=== PATIENT | female | born 1955 | race African-American/Black ===

== ENCOUNTER 2017-12-27 05:49 | Day surgery (SDC) | payer MEDICARE, MEDICAID ==
[2017-12-26 11:55] LABS: BASOPHILS 0.6 % (0-2); EOSINOPHILS 4.8 % (0-7); HEMATOCRIT 31.5 % (36.0-48.0); HEMOGLOBIN 9.7 g/dL (12-16); IMMATURE GRANULOCYTES 0.3 % (0-5); LYMPHOCYTES 43.4 % (15-50); MCH 25.9 pg (26.0-34.0); MCHC 30.8 g/dL (31.0-37.0); MEAN PLATELET VOLUME 9.7 fL (7.4-10.4); MONOCYTES 10.7 % (2-11); NEUTROPHILS 40.2 % (40-80); PLATELET COUNT 186 10x3/uL (130-400); RBC 3.75 10x6/uL (4.00-5.40); RDW 17.2 % (11.5-14.5); WBC 3.6 10x3/uL (4.8-10.8)
[2017-12-26 12:05] LABS: ANION GAP 16.9 mmol/L (8-16); CARBON DIOXIDE 18.6 mmol/L (21.0-32.0); CREATININE - SERUM 3.8 mg/dL (0.6-1.3); POTASSIUM - SERUM 4.5 mmol/L (3.5-5.1)
[2017-12-26 12:06] LABS: INR 1.26 (0.85-1.17); PROTIME 15.3 SECONDS (11.6-15.0)
[~2017-12-27] VITALS: Ht 162.6 cm; Wt 124.7 kg
--- NOTE | ~2017-12-27 | OP ---
PATIENT NAME: SABRINA MCGOVERN MEDICAL RECORD: [id number] :59 LOCATION:DIVON ADMISSION DATE: SURGEON: DENVER DELONG MD DATE OF OPERATION: 12/27/2017 REFERRED BY: Quinn Gibson MD PREOPERATIVE DIAGNOSIS: Chronic kidney disease V. POSTOPERATIVE DIAGNOSIS: Chronic kidney disease V. OPERATION PERFORMED: Creation of a left distal brachial artery/proximal radial artery to cephalic vein AV fistula. SURGEON: Denver Delong MD ANESTHESIA: Regional nerve block plus IV sedation and monitoring per DISPATCHER CHIEF OIL. PREOPERATIVE NOTE: Ms. Mcgovern is a 62-year-old -Macanese female with chronic kidney disease, referred by Dr. Gibson for placement of dialysis access. It is anticipated that she will require dialysis access, probably sometime this year. She is a suitable candidate for a left brachiocephalic fistula or possibly PRA based fistula. DESCRIPTION OF PROCEDURE: With the patient under nerve block and IV sedation in supine position, the left arm was prepped and draped in a sterile manner. I examined her arm with ultrasound after applying nitroglycerin and using a Kirby drain as a proximal venous tourniquet. The veins in her forearm and wrist were smaller, but the cephalic and basilic veins in the upper forearm and upper arm were excellent and the brachial artery was of good caliber and I elected to go ahead with a brachiocephalic AV fistula. I made a transverse antecubital incision and exposed the brachial artery at its bifurcation and controlled the vessels with loops around the proximal radial and proximal ulnar arteries and the distal brachial artery. The median cubital vein and its junction with the basilic vein was exposed and this was ligated and divided and the median cubital/cephalic vein prepared for anastomosis via a deep or center line cutter operator branch. My intention was to if possible create a bidirectional outflow. Later during the operation, however, there was simply too much tension on the vein, so that it was necessary to ligate and divide the distal vein and thus the end result was an unidirectional output or outflow fistula. The vein was prepared for anastomosis and flushed with heparinized saline and occluded, it was treated with topical papaverine. The artery was opened just on top of its bifurcation and the artery flushed proximally and distally with heparinized saline. The anastomosis was then performed in the vein to side of artery with running 7-0 Prolene. When completed, excellent flow was immediately established within the new fistula and there was preservation of pulsatile Doppler flow in the distal arteries and in the radial artery at the wrist and palmar arch. The wound was irrigated with Ancef and gentamicin solution. It was closed with interrupted inverted 3-0 Vicryl and running intracuticular 4-0 Monocryl and Dermabond glue. It was dressed with Maxorb Ag, Tegaderm, and Cavilon skin prep and she was awakened and taken back to the recovery room in stable condition. She will wear a sling on her arm overnight and/or may take it off as soon as motor function and sensory function returned in her arm. OPERATIVE REPORT [id number] SABRINA MCGOVERN She will be discharged to home with an appointment to return to see me in 10 days. She is given a prescription for 10 tablets of [place] 5/325 one p.o. q.4 hours p.r.n. pain. I understand from her that she has some perhaps a small number of these tablets at home which she has taken at least in the past to his knowledge for menstrual discomfort. Blood loss during the operation was about 10-15 cc. None was replaced intraoperatively. All sponges, instruments, and needles were accounted for. No drain was used. TRANSINT:[id number] Voice Confirmation ID: [id number] DOCUMENT ID: [id number] DENVER DELONG MD at 1750 CC: QUINN GIBSON [id number] DICTATION DATE: 12/27/17 1053 SUPERINTENDENT OPERATIONS DIVISION: 12/27/17 1146 [facility] 12/27/17 [id number] [place] [address]
[~2017-12-27 05:49] MED LIST: BUMEX 1 MG TAB1 MG PO; CARDURA8 MG PO; CATAPRES0.3 MG PO; CELEXA40 MG PO; COREG25 MG PO; FISH OIL 1,0001 CA1 PO; HYDRALAZINE HC100 MG PO; ISOSORBIDE MON120 M1 PO; LANTUS INSULIN10 ML SC; NORVASC10 MG PO; PLAVIX75 MG PO
[2017-12-27] MEDS ORDERED: HYDROCODONE-APA1 TAB PO (06:22)
[2017-12-27 06:45] VITALS: BP 143/68; Ht 162.6 cm; Wt 124.7 kg
[2017-12-27] MEDS ORDERED: HYDROCODON-ACE1 EAC7 PO (10:42)
== END 2017-12-27 13:11 | disposition home or self-care (01) ==
LOC: D.OPS 05:49 → D.PAN 08:00 → D.OPS 13:11
PROVIDERS: Surgery
DX: E11.22 Type 2 diabetes mellitus with diabetic chronic kidney disease (principal); I13.2 Hypertensive heart and chronic kidney disease with heart failure and with stage 5 chronic kidney disease, or end stage renal disease; N18.6 End stage renal disease; Z95.1 Presence of aortocoronary bypass graft; Z95.5 Presence of coronary angioplasty implant and graft; Z01.812 Encounter for preprocedural laboratory examination

== ENCOUNTER 2018-03-19 08:00 | Outpatient (CLI) | payer MEDICARE, MEDICAID ==
[2017-12-27 06:45] VITALS: BMI 47.3
[~2018-03-19 08:00] MED LIST changes: +HYDROCODON-ACE1 EAC7 PO; +HYDROCODONE-APA1 TAB PO
== END 2018-03-19 09:00 | disposition home or self-care (01) ==
LOC: D.MAMMO 08:00
DX: Z12.31 Encounter for screening mammogram for malignant neoplasm of breast (principal)

== ENCOUNTER 2018-03-26 10:08 | Observation (INO) | payer MEDICARE, MEDICAID ==
[~2018-03-26] VITALS: Ht 162.6 cm; Wt 78.2 kg
[2018-03-26] VITALS (10 sets, daily range): BP systolic 120–172; BP diastolic 64–99; Ht 162.6 cm; Wt 78.2 kg
--- NOTE | ~2018-03-26 | HEMODYNAMI ---
PATIENT:SABRINA MCGOVERN MEDICAL RECORD: [id number] : 59 LOCATION:D. ADMISSION DATE: 03/26/18 Generatedon:03/26/201814:31 Patient name: SABRINA MCGOVERN Patient #: [id number] SSN: : 1955 Date of study: 03/26/2018 Page: Of Hemodynamic Procedure Report Patient Data Patient Demographics Procedure consent was obtained First Name: SABRINA Gender: Female Last Name: SHANIQUA : 1955 [facility] Initial: K Age: 62 year(s) Patient #: [id number] Race: Black Additional ID: [id number] Contact details [address]: [address] [place] [address] rd State: [place] City: [place] Zip code: [address] Admission Admission Data Admission Date: 03/26/2018 Admission Time: 10:08 Procedure Procedure Types Cath Procedure Peripheral Cath Diagnostic Procedure Miscellaneous Procedure Description Procedure Date Procedure Date: 03/26/2018 Procedure Start Time: 13:25 Procedure Staff Name Function Ross Flor MD Performing Physician Ulisses Hanson RT Monitor Leslye Pardo RT Scrub Cheryl Leslie RN Nurse Procedure Data Cath Procedure Fluoroscopy Diagnostic fluoroscopy Total fluoroscopy Time: time: 25.2 min 25.2 min Diagnostic fluoroscopy Total fluoroscopy dose: 423 dose: 423 mGy mGy Contrast Material Contrast Material Type Amount (ml) Isovue 300 15 Entry Location Entry Primary Successful Side Size (Fr) Upsize Upsize Entry Closure Successful Closure Location 1 (Fr) 2 (Fr) Remarks Device Remarks Femoral Right 6 Fr Manual vein Mid-Length Compressi on Diagnostic catheters Device Type Used For End Catheter Placement Merit Impress COBRA 2 5Fr Pressure 65CM catheter ([id number]) Measurement Merit Impress KA2 5Fr 65CM catheter ([id number]) Cook CHG-B 5FR 65CM catheter ([id number]) DIAGNOSTIC MPA-2 5Fr catheter ([id number]) Procedure Medications Medication Administration Route Dosage Lidocaine 1% added to field 20 Heparin Flush Bag added to field 2 bags (1000units/500ml NS) Versed I.V. 0.5 mg Fentanyl I.V. 25 mcg Versed I.V. 0.5 mg Fentanyl I.V. 25 mcg Versed I.V. 0.5 mg Fentanyl I.V. 25 mcg Hemodynamics Rest Heart Rate: 63 (bpm) Snapshots Pre Cath Intra NCS Post Cath Vital Signs Time Heart Resp SPO2 etCO2 NIBP (mmHg) Rhythm Pain Sedation Rate (ipm) (%) (mmHg) Status Level (bpm) 13:11:13 62 25 99 23.9 143/71(85) NSR 0 (11) 10(A) , No pain 13:15:27 62 26 100 24.7 165/85(144) NSR 0 (11) 10(A) , No pain 13:19:49 65 18 100 31.5 186/93(168) NSR 0 (11) 10(A) , No pain 13:24:17 60 17 100 33.7 182/86(161) NSR 0 (11) 10(A) , No pain 13:28:48 60 11 100 35.2 186/85(158) NSR 0 (11) 10(A) , No pain 13:33:12 60 14 100 0 175/85(149) NSR 0 (11) 10(A) , No pain 13:37:30 69 16 100 38.2 154/87(127) NSR 0 (11) 10(A) , No pain 13:41:52 60 8 100 40.4 140/75(118) NSR 0 (11) 10(A) , No pain 13:46:08 60 8 100 42 134/79(125) NSR 0 (11) 10(A) , No pain 13:50:22 60 11 100 38.2 140/76(120) NSR 0 (11) 10(A) , No pain 13:54:38 60 10 100 45.7 141/78(120) NSR 0 (11) 10(A) , No pain 13:58:56 60 13 100 45.7 146/73(126) NSR 0 (11) 10(A) , No pain 14:03:14 60 10 100 45 144/78(122) NSR 0 (11) 10(A) , No pain 14:07:31 59 10 100 45 144/79(120) NSR 0 (11) 10(A) , No pain 14:11:46 59 9 99 45.7 146/71(124) NSR 0 (11) 10(A) , No pain 14:16:05 60 9 98 45.7 138/76(103) NSR 0 (11) 10(A) , No pain 14:20:20 66 9 97 43.4 140/76(119) NSR 0 (11) 10(A) , No pain 14:24:36 60 10 96 46.5 137/76(114) NSR 0 (11) 10(A) , No pain 14:28:53 60 9 95 45.7 136/77(119) NSR 0 (11) 10(A) , No pain Medications Time Medication Route Dose Verified Delivered Reason Notes Effec tiveness by by 13:13:37 Lidocaine 1% added 20ml Ross Hawkins used for to vial Basia Flor procedure field MD DELGADILLO 13:13:51 Heparin Flush added 2 Ross Hawkins used for Bag to bags Basiajuan manuel Flor procedure (1000units/500ml field MD DELGADILLO NS) 13:25:33 Versed I.V. 0.5 Ross Cheryl for mg Basia Anuj RN sedation 13:25:43 Fentanyl I.V. 25 Ross Cheryl for mcg Basia Anuj RN sedation 13:32:45 Versed I.V. 0.5 Ross Cheryl for mg Basia Anuj RN sedation 13:32:53 Fentanyl I.V. 25 Ross Luna for mcg Basia Anuj RN sedation 13:56:31 Versed I.V. 0.5 Ross Cheryl for mg Basia Anuj RN sedation 13:56:39 Fentanyl I.V. 25 Ross Cheryl for mcg Basia Anuj RN sedation Procedure Log Time Note 12:46:49 Ulisses Hanson RT (R) (CV) sent for patient. Start room use. 12:46:56 Time tracking: Regular hours (M-F 7:00 - 5:00) 12:47:02 Plan of Care:Hemodynamics will remain stable., Cardiac rhythm will remain stable., Comfort level will be maintained., Respiratory function will remain adequate., Patient/ family verbilizes understanding of procedure., Procedure tolerated without complication., Recovers from procedure without complications.. 12:47:11 Patient received from ED to IR Alert and oriented. Tansferred to table in Supine position. 12:47:13 Correct patient and procedure confirmed by team. 12:47:14 Correct patient and procedure confirmed by team. 12:47:17 Signed procedure consent form obtained from patient. 12:47:18 ECG and BP/O2 sat monitors applied to patient. 12:47:19 Full Disclosure recording started 12:47:20 - 12:47:27 H&P Date Dictated: 03/26/2018 Within 30 days and on chart.. 12:47:29 Pre-procedure instructions explained to patient. 12:47:31 Family in waiting room. 12:47:33 Patient NPO since Midnight. 12:47:37 Is the patient allergic to Iodine/contrast media? No. 12:47:39 Is patient on blood thinner?No 12:47:40 Patient diabetic? Yes. 12:47:41 If diabetic: On Metformin? No 12:47:43 - 12:47:44 ----Pre-sedation anethsthesia assessment.---- 12:47:46 Previous problem with sedation/anesthesia? No ? 12:47:47 Snore? No 12:47:48 Sleep apnea? No 12:47:51 Opens mouth fully? Yes 12:47:55 Sticks out tongue? Yes 12:48:01 Deviated septum? No 12:48:05 Airway obstruction? No ? 12:48:07 Dentures? No ? 12:48:16 Use device set IR Diagnostic 12:48:17 Tegaderm 4 x 4 (1626W) opened to sterile field. 12:48:18 Sterile Angiographic Pack opened to sterile field. 12:48:18 Bag Decanter (2002S) opened to sterile field. 12:59:22 IV patent on arrival in right hand with 0.9% NaCl at [facility]. 12:59:35 Right groin area was prepped with chlora-prep and draped in sterile fashion 12:59:37 Alarms reviewed by R. N. 12:59:37 Sharps counted by scrub and verified by R.N. 13:10:05 Vital chart was started 13:10:16 Baseline sample Acquired. 13:13:37 Lidocaine 1% 20ml vial added to field was administered by Ross zelaya MD; used for procedure; 13:13:51 Heparin Flush Bag (1000units/500ml NS) 2 bags added to field was administered by Ross Flor MD; used for procedure; 13:22:28 Physician arrived 13::29 --------ALL STOP TIME OUT------ 13:22:30 Final Timeout: patient, procedure, and site verified with staff and physician. All members of the team are in agreement. 13:22:34 Right groin site verified by team. 13:22:47 Sedation plan: IV Moderate Sedation Medication:Versed, Fentanyl 13:25:11 Procedure started. 13:25:16 Local anesthetic to right femoral vein with Lidocaine 1% by Ross Flor MD.INITIAL ACCESS ONLY 13:25:27 Micropuncture VSI 4FR kit opened to sterile field. 13:25:29 SHEATH 6FR Destination (RSR01) opened to sterile field. 13:25:31 BENTSON 145cm wire (L46039) opened to sterile field. 13:25:33 Versed 0.5 mg I.V. was administered by Cheryl Leslie RN; for sedation; 13:25:33 Access obtained with 4Fr micropunture. 13:25:43 Fentanyl 25 mcg I.V. was administered by Cheryl Leslie RN; for sedation ; 13:25:46 A 6 Fr Mid-Length sheath was inserted into the Right Femoral vein 13:29:43 Baseline sample Acquired. 13:32:45 Versed 0.5 mg I.V. was administered by Cheryl Leslie RN; for sedation; 13:32:53 Fentanyl 25 mcg I.V. was administered by Cheryl Leslie RN; for sedation ; 13:34:36 SNARE, GOOSENECK SNARE 10MM opened to sterile field. 13:34:51 A Merit Impress COBRA 2 5Fr 65CM catheter ([id number]) was advanced over the wire and used for Pressure Measurement. 13:40:47 A Merit Impress KA2 5Fr 65CM catheter (68492AW1) was advanced over the wire and used for . 13:42:18 GLIDE WIRE ANGLE 180cm (UU1745) opened to sterile field. 13:42:48 TORQUE DEVICE PLASTIC .038 ( TD01) opened to sterile field. 13:46:19 Cook JUSTO 1 6FR. Guide sheath opened to sterile field. 13:51:10 COPILOT Valve Control (7514376) opened to sterile field. 13:55:34 A AXADO CHG-B 5FR 65CM catheter (I45985) was advanced over the wire and used for . 13:56:31 Versed 0.5 mg I.V. was administered by Cheryl Leslie RN; for sedation; 13:56:39 Fentanyl 25 mcg I.V. was administered by Cheryl Leslie RN; for sedation ; 14:00:49 A DIAGNOSTIC MPA-2 5Fr catheter (486098W) was advanced over the wire an d used for . 14:22:49 Procedure ended.(Physican Out) 14:23:37 Fluoroscopy time 25.20 minutes. 14:24:02 Fluoroscopy dose: 423 mGy 14:24:02 Flurop Dose total: 423 14:24:52 Contrast amount:Isovue 300 15ml. 14:24:54 Sharps counted by scrub and verified by R.N. 14:24:56 Insertion/operative site no bleeding no hematoma. 14:25:01 Post-op/insertion site Right Femoral vein dressed using a 4 x 4 and Tegaderm. 14:25:08 Sheath removed intact; hemostasis achieved with Manual Compression to the Right Femoral vein. 14:25:13 Post procedure instruction explained to patient.Patient verbalizes understanding. 14:25:14 Procedure and supply charges have been captured, reviewed, submitted an d are correct. 14:26:08 Post right femoral vein:stable 14:30:57 Report given to ED. 14:31:02 Patient transfered to ED with Stretcher. 14:31:31 Vital chart was stopped Device Usage Item Name Manufacture Quantity Catalog Hospital Part Current Minima l Lot# / Number Charge Number Stock Stock Serial# Code Tegaderm 4 x 3M 1 1626W 314196 [id number] 247722 5 4 (1626W) Sterile Cardinal 1 [id number] 899852 188825 5 Angiographic Health Pack Bag Decanter Microtek 1 2001S 100550 79199 186258 5 (2001S) Medical Inc. Micropuncture VSI VASCULAR 1 7266V 267148 890655 5 VSI 4FR kit SOLUTIONS SHEATH 6FR Terumo 1 RSR01 801585 22034 257032 5 Destination (RSR01) BENTSON 145cm Cook Medical 1 U71513 278749 420568 5 7956917 wire (K43241) SNARE, Medtronic 1 EQ6787 544829 82425 606595 5 GOOSENECK SNARE 10MM Merit Impress Merit 1 [id number] 737761 610231 238234 5 COBRA 2 5Fr Medical 65CM catheter ([id number]) Merit Impress Merit 1 [id number] 889114 153098 5 KA2 5Fr 65CM Medical catheter (26325BO3) GLIDE WIRE Terumo 1 SM3732 602575 808112 258300 5 ANGLE 180cm (QX4010) TORQUE DEVICE [place] 1 TD01 820000 323457 111807 5 PLASTIC .038 Scientific ( TD01) Cook JUSTO 1 Cook Medical 1 Z82858 206849 373067 5 1579917 6FR. Guide sheath COPILOT Valve Rdz 1 9794193 437837 407388 281409 5 Control Vascular (8031411) Cook CHG-B Cook Medical 1 Q43982 279110 148300 548651 5 5FR 65CM catheter (Q39777) DIAGNOSTIC Cardinal 1 [id number] 728045 486433 078763 5 MPA-2 5Fr Health catheter ([id number]) Signature Audit [place] Stage Time Signature Unsigned Intra-Procedure 03/26/2018 Ulisses 2:31:27 PM Shuffield RT (R) (CV) Signatures Monitor : Ulisses Signature : Shuffield RT Date : Time : [id number] [place] [address]
[2018-03-26 11:17] LABS: HEMOGLOBIN 11.5 g/dL (12-16); MCH 26.4 pg (26.0-34.0); MCHC 31.9 g/dL (31.0-37.0); MCV 82.8 fL (80.0-100.0); PLATELET COUNT 154 10x3/uL (130-400); RBC 4.35 10x6/uL (4.00-5.40); RDW 15.7 % (11.5-14.5); WBC 5.5 10x3/uL (4.8-10.8)
[2018-03-26 11:19] LABS: INR 1.09 (0.85-1.17); PROTIME 13.7 SECONDS (11.6-15.0)
[2018-03-26 11:46] LABS: ALBUMIN 2.5 g/dL (3.4-5.0); ANION GAP 11.4 mmol/L (8-16); BILIRUBIN - TOTAL 0.38 mg/dL (0.2-1.3); CALCIUM 9.1 mg/dL (8.5-10.1); CARBON DIOXIDE 29.1 mmol/L (21.0-32.0); CREATININE - SERUM 3.9 mg/dL (0.6-1.3); POTASSIUM - SERUM 3.5 mmol/L (3.5-5.1); PROTEIN - SERUM 7.6 g/dL (6.4-8.2)
[2018-03-26 12:09] LABS: EOSINOPHILS 9 % (0-7); LYMPHOCYTES 53 % (15-50); MONOCYTES 4 % (2-11); NEUTROPHILS 33 % (40-80); PLATELET ESTIMATE NORMAL; PLATELET MORPHOLOGY GIANT PLTS PRESENT; ROULEAUX 1+
[2018-03-26] MEDS ORDERED: FOLIC ACID1 MG PO (18:18)
[2018-03-26] MEDS ORDERED: PROTONIX40 MG PO (18:19)
[2018-03-27 00:31] VITALS: BP 182/73
[2018-03-27 04:37] VITALS: BP 159/61
[2018-03-27 07:52] VITALS: BP 155/63
== END 2018-03-27 10:25 | disposition home or self-care (01) ==
LOC: D.ER 10:08 → D.M2 15:55 → OBSVTIME 15:55 → D.M2 03-27 10:25
PROVIDERS: Surgery
DX: T85.9XXA Unspecified complication of internal prosthetic device, implant and graft, initial encounter (principal); Y83.8 Other surgical procedures as the cause of abnormal reaction of the patient, or of later complication, without mention of misadventure at the time of the procedure; E11.22 Type 2 diabetes mellitus with diabetic chronic kidney disease; I13.2 Hypertensive heart and chronic kidney disease with heart failure and with stage 5 chronic kidney disease, or end stage renal disease; I50.9 Heart failure, unspecified; N18.6 End stage renal disease; Z99.2 Dependence on renal dialysis; F41.8 Other specified anxiety disorders; Z86.718 Personal history of other venous thrombosis and embolism

== ENCOUNTER → 2018-03-31 10:01 | Outpatient (CLI) | payer MEDICARE, MEDICAID ==
[2018-03-26 18:29] VITALS: BMI 29.6
[~2018-03-31 10:01] MED LIST changes: +FOLIC ACID1 MG PO; +PROTONIX40 MG PO
== END | disposition home or self-care (01) ==
LOC: D.RAD 10:01
DX: M79.5 Residual foreign body in soft tissue (principal)

== ENCOUNTER 2018-05-20 05:42 | Day surgery (SDC) | payer MEDICARE, MEDICAID ==
[~2018-05-20] VITALS: Ht 162.6 cm; Wt 83.9 kg
--- NOTE | ~2018-05-20 | OP ---
PATIENT NAME: SABRINA MCGOVERN MEDICAL RECORD: [id number] :59 LOCATION:DIVON ADMISSION DATE: SURGEON: DENVER DELONG MD DATE OF OPERATION: 05/20/2018 REFERRING PHYSICIAN: Quinn Gibson MD PREOPERATIVE DIAGNOSES: End-stage renal disease and nonmaturing left arm brachiocephalic arteriovenous fistula. POSTOPERATIVE DIAGNOSES: End-stage renal disease and nonmaturing left arm brachiocephalic arteriovenous fistula. OPERATION PERFORMED: Fistulogram and open ligation of diverting tributaries. SURGEON: Denver Delong MD ANESTHESIA: General with LMA per PHARMACY INFORMATICS SPECIALIST. PREOPERATIVE NOTE: This 62-year-old -British female has a left brachiocephalic AV fistula, which is not yet quite mature. She is here today to have a revision with ligation of tributaries and a fistulogram and indicated procedures. She is presently dialyzing with a right IJ TDC. Under general anesthesia in supine position, the patient prepped and draped in sterile manner. The fistula was accessed in the antecubital space near the arterial anastomosis with ultrasound guidance and micropuncture technique. Contrast injections revealed 2 very large diverting tributary veins and otherwise a great fistula of good caliber a centimeter or nearly so in most sites and half a centimeter or less generally in depth. There was a question in my mind that she might have JA stenosis. Retrograde studies though demonstrated there was no significant stenosis and the arterial anastomosis was wide open as seen on ultrasound and angiography. Contrast was followed all the way to the right atrium and there was no obstruction except possibly around the pacemaker leads, which enter the left subclavian vein. This was just not well visualized. Using ultrasound and x-ray, I isolated 2 sites where I made 2 incisions parallel to the posterior aspect of the vein. I isolated the 2 large tributary veins, which I thought were diverting a significant flow and pressure from the fistula. These were each multiply ligated and divided and a repeat fistulogram demonstrated much improvement. The wounds were closed with running intracuticular Monocryl and Dermabond glue. They were dressed with Maxorb Ag, Tegaderm, and Cavilon skin prep and the patient awakened and taken back to the recovery room. TRANSINT:[id number] Voice Confirmation ID: [id number] DOCUMENT ID: [id number] OPERATIVE REPORT [id number] SABRINA MCGOVERN JAMES MD at 1753 CC: QUINN GIBSON [id number] DICTATION DATE: 05/20/18 1507 POT ROOM SUPERVISOR: 05/20/18 1610 [facility] 05/20/18 [address] [place] [address]
[2018-05-20 06:00] LABS: BASOPHILS 0.4 % (0-2); EOSINOPHILS 9.8 % (0-7); HEMATOCRIT 37.1 % (36.0-48.0); HEMOGLOBIN 12.2 g/dL (12-16); IMMATURE GRANULOCYTES 0.3 % (0-5); LYMPHOCYTES 47.6 % (15-50); MCH 28.4 pg (26.0-34.0); MCHC 32.9 g/dL (31.0-37.0); MCV 86.5 fL (80.0-100.0); MEAN PLATELET VOLUME 9.1 fL (7.4-10.4); MONOCYTES 8.2 % (2-11); NEUTROPHILS 33.7 % (40-80); PLATELET COUNT 170 10x3/uL (130-400); RBC 4.29 10x6/uL (4.00-5.40); RDW 16.7 % (11.5-14.5); WBC 7.5 10x3/uL (4.8-10.8)
[2018-05-20 06:07] LABS: ANION GAP 13.1 mmol/L (8-16); CALCIUM 9.3 mg/dL (8.5-10.1); CREATININE - SERUM 5.2 mg/dL (0.6-1.3); POTASSIUM - SERUM 4.1 mmol/L (3.5-5.1)
[2018-05-20 06:09] LABS: APTT 33.4 SECONDS (22.8-39.4); INR 1.03 (0.85-1.17); PROTIME 13.1 SECONDS (11.6-15.0)
[2018-05-20 07:27] VITALS: BMI 31.8
[2018-05-20 10:54] VITALS: Ht 162.6 cm; Wt 83.9 kg
== END 2018-05-20 17:03 | disposition home or self-care (01) ==
LOC: D.OPS 05:42
PROVIDERS: Surgery
DX: N18.6 End stage renal disease (principal); T82.590A Other mechanical complication of surgically created arteriovenous fistula, initial encounter; Z01.812 Encounter for preprocedural laboratory examination

== ENCOUNTER 2018-09-30 07:58 | Day surgery (SDC) | payer MEDICARE, MEDICAID ==
[2018-09-29 13:24] LABS: BASOPHILS 0.4 % (0-2); EOSINOPHILS 2.5 % (0-7); HEMATOCRIT 38.2 % (36.0-48.0); HEMOGLOBIN 12.8 g/dL (12-16); IMMATURE GRANULOCYTES 0.2 % (0-5); MCH 30.5 pg (26.0-34.0); MCHC 33.5 g/dL (31.0-37.0); MEAN PLATELET VOLUME 10.1 fL (7.4-10.4); NEUTROPHILS 43.9 % (40-80); PLATELET COUNT 202 10x3/uL (130-400); RDW 13.9 % (11.5-14.5); WBC 8.3 10x3/uL (4.8-10.8)
[2018-09-29 13:34] LABS: ANION GAP 14.1 mmol/L (8-16); CALCIUM 8.5 mg/dL (8.5-10.1); CARBON DIOXIDE 28.5 mmol/L (21.0-32.0); CREATININE - SERUM 4.6 mg/dL (0.6-1.3); POTASSIUM - SERUM 3.6 mmol/L (3.5-5.1)
[2018-09-29 13:45] LABS: APTT 33.3 SECONDS (22.8-39.4); INR 1.01 (0.85-1.17); PROTIME 12.8 SECONDS (11.6-15.0)
[~2018-09-30] VITALS: Ht 162.6 cm; Wt 87.1 kg
--- NOTE | ~2018-09-30 | OP ---
PATIENT NAME: SABRINA MCGOVERN MEDICAL RECORD: [id number] :59 LOCATION:JOLEEN ADMISSION DATE: SURGEON: DENVER DELONG MD DATE OF OPERATION: 09/30/2018 PREOPERATIVE DIAGNOSES: End-stage renal disease and dependence on hemodialysis and nonmaturing deep left brachiocephalic arterial venous fistula. POSTOPERATIVE DIAGNOSES: End-stage renal disease and dependence on hemodialysis and nonmaturing deep left brachiocephalic arterial venous fistula. OPERATION PERFORMED: Open revision without thrombectomy of left brachiocephalic AV fistula by translocation and superficialization of the vein. SURGEON: Denevr Delong MD ANESTHESIA: General with LMA per TRANSIT COACH OPERATOR. REFERRING PHYSICIAN: Quinn Gibson MD PREOPERATIVE NOTE: Ms. Mcgovern is a 62-year-old -Portuguese female from [place], who had a left brachiocephalic fistula made several months ago. It has been difficult to palpate and access. I have returned her to the operating room once for open ligation of numerous tributaries and the fistula is still not reliably palpable, although I believe it has adequate arterial inflow and good pressure in the juxta-anastomotic segment and no other lesions had been seen on fistulogram. She is brought to the operating room at this time with plans to revise the fistula by mobilizing and elevating the vein from the antecubital space to the deltopectoral groove. DESCRIPTION OF PROCEDURE: Under general anesthesia in supine position, the patient's left arm was prepped and draped in sterile manner. A long incision was made from antecubital space to almost the deltopectoral groove and the vein was exposed and mobilized with sharp dissection. Tributaries were ligated between Vicryl ties and Hemoclips, and the vein was treated with topical papaverine. It was about a centimeter in diameter for most of its length and really looks quite good and ready to use. The wound was irrigated with Ancef and gentamicin solution. It was infiltrated and irrigated with 0.25% Marcaine without epinephrine and I approximated superficial tissues deep to the vein and then closed the skin directly over the vein with a few interrupted subcuticular 3-0 Vicryls and then running intracuticular 4-0 Stratafix. The incision was also sealed and closed with Dermabond glue and dressed with Maxorb Ag, Tegaderm, and Cavilon skin prep. She was awakened and taken back to the recovery room in stable condition. She will be allowed to go home today and continue her same medications, diet, activities, and routine dialysis schedule. She is to see me in my office next week. Blood loss was less than 5 cc and unreplaced. All sponges, instruments, and needles were accounted for. No drain was used, and no surgical specimen was submitted for histopathology. I expect that this fistula should be ready for access in 2-3 weeks. I have not given the patient any additional prescriptions for pain medications as she is OPERATIVE REPORT [id number] SABRINA MCGOVERN already on a fairly heavy scheduled dose of hydrocodone. TRANSINT:[id number] Voice Confirmation ID: [id number] DOCUMENT ID: [id number] cc: Wilmar Barnes [phone] DENVER DELONG MD CC: WILMAR BARNES and QUINN GIBSON [phone] DICTATION DATE: 09/30/18 1027 MAPPING SPECIALIST: 09/30/18 1113 [facility] [address] [place] [address]
[2018-09-30 06:19] VITALS: Ht 162.6 cm; Wt 87.1 kg
[~2018-09-30 07:58] MED LIST changes: +BUMETANIDE0.5 MG PO; +LANTUS SOL100 UNIT/1 SC; +OMEPRAZOLE40 MG PO; +RANITIDINE HCL150 M1 PO; +ZOFRAN ODT4 MG/UDTAB PO
--- NOTE | 2018-09-30 13:40 | NUR ---
1330 ROUNDS BY NAZIA PATEL APN
--- NOTE | 2018-09-30 14:23 | NUR ---
1415 PT'S RIDE HERE, RELEASED IN WC WITH ESCORT.
== END 2018-09-30 14:15 | disposition home or self-care (01) ==
LOC: D.OPS 07:58
PROVIDERS: Surgery
DX: T82.590A Other mechanical complication of surgically created arteriovenous fistula, initial encounter (principal); N18.6 End stage renal disease; Z01.812 Encounter for preprocedural laboratory examination

== ENCOUNTER 2019-01-02 19:00 | Outpatient (CLI) | payer MEDICARE, MEDICAID | END 2019-01-02 23:59 | disposition home or self-care (01) | LOC: D.MAMMO 19:00 | DX: Z12.31 Encounter for screening mammogram for malignant neoplasm of breast (principal) ==